=== PATIENT | male | born 1980 | race Two or more races ===

== ENCOUNTER 2025-06-01 09:55 | Emergency (ER) | payer BC, OTHER ==
[~2025-06-01] VITALS: Ht 170.2 cm; Wt 89.5 kg
[2025-06-01] MEDS: SODIUM CHLORIDE 0.9% 1,000 ML IV ONE (10:45)
[2025-06-01 11:08] LABS: Hematocrit 46.0 % (41.0-53.0); Hemoglobin 15.7 g/dL (13.5-17.5); Mean Corpuscular Hemoglobin 28.9 pg (28.0-32.0); Mean Corpuscular Volume 84.6 fL (80.0-100.0); Nucleated Red Blood Cells % 0.1 %
[2025-06-01] MEDS: KETOROLAC TROMETH 30 MG/ML 1ML VIAL IV ONE (11:14)
--- NOTE | 2025-06-01 11:14 | ED.PDOC ---
GI ASSESSMENT HPI Comments 45y M who presents to the ED for chief complaint of abdominal pain. Pt states he has been having abdominal pain for the past 3 days. Pt states yesterday, he started to have nausea and vomiting with associated aching abdominal pain. Pt states his pain got worse since and he feels like his abdominal feels full and "feels inflamed." Pt was sent from urgent care at for evaluation for intractable abdominal pain. Pt states he was given zofran in urgent care with minimal change in symptoms. Pt denies any other symptoms at this time. Chief Complaint: Abdominal Pain Time Seen by MD: 11:12 Reviewed Notes: Medications, Allergies Allergies: Coded Allergies: NO KNOWN ALLERGIES (Unverified , 06/01/25) Information Source: Patient Mode of Arrival: Ambulatory Brought in by: self Timing: Days Duration: Since onset Past Medical History PAST MEDICAL HISTORY: DM, High Lipids Surgical History: Denies all surgeries Family History Family History: Reviewed,noncontributory to illness Social History Smoker: Non-Smoker Alcohol: Denies ETOH Use Drugs: Denies Drug Use Lives In: Home Constitutional: denies: chills, diaphoresis, fatigue, fever, malaise, sweats, weakness, others EENTM: denies: blurred vision, double vision, ear bleeding, ear discharge, ear drainage, ear pain, ear ringing, eye pain, eye redness, hearing loss, mouth pain, mouth swelling, nasal discharge, nose bleeding, nose congestion, nose pain, photophobia, tearing, throat pain, throat swelling, voice changes, others Respiratory: denies: cough, hemoptysis, orthopnea, SOB at rest, shortness of breath, SOB with excertion, stridor, wheezing, others Cardiovascular: denies: chest pain, dizzy spells, diaphoresis, Dyspnea on exertion, edema, irregular heart beat, left arm pain, lightheadedness, pal pitations, PND, syncope, others Gastrointestinal: reports: abdominal pain, nausea, vomiting; denies: abdomen distended, blood streaked bowels, constipated, diarrhea, dysphagia, difficulty swallowing, hematemesis, melena, poor appetite, poor fluid intake, rectal bleeding, rectal pain, others Genitourinary: denies: burning, dysuria, flank pain, frequency, hematuria, incontinence, penile discharge, penile sore, pain, testicle pain, testicle swelling, urgency, others Neurological: denies: dizziness, fainting, headache, left sided numbness, left sided weakness, numbness, paresthesia, pre-existing deficit, right sided numbness, right sided weakness, seizure, speech problems, tingling, tremors, weakness, others Musculoskeletal: denies: back pain, gout, joint pain, joint swelling, muscle pain, muscle stiffness, neck pain, others Integumetry: denies: bruises, change in color, change in hair/nails, dryness, laceration, lesions, lumps, rash, wounds, others Allergic/Immunocompromised: denies: Difficulty Healing, Frequent Infections, Hives, Itching, others Hematologic/Lymphatic: denies: anemia, blood clots, easy bleeding, easy bruising, swollen glands, others Endocrine: denies: excessive hunger, excessive sweating, excessive thirst, excessive urination, flushing, intolerance to cold, intolerance to heat, unexplained weight gain, unexplained weight loss, others Psychiatric: denies: anxiety, bipolar disorder, depression, hopeless, panic disorder, schizophrenia, sleepless, suicidal, others All Other Systems: Reviewed and Negative Physical Exam General Appearance: No Apparent Distress, Normal HEENT: Normal ENT Inspection, Pharynx Normal, TMs Normal Neck: Full Range of Motion, Non-Tender, Normal, Normal Inspection Respiratory: Chest Non-Tender, Lungs Clear, No Accessory Muscle Use, No Respiratory Distress, Normal Breath Sounds Cardiovascular: No Edema, No JVD, No Murmur, No Gallop, Normal Peripheral Pulses, Regular Rate/Rhythm Breast Exam: Deferred Gastrointestinal: No Organomegaly, Non Tender, No Pulsatile Mass, Normal Bowel Sounds, Soft Genitalia: Deferred Pelvic: Deferred Rectal: Deferred Extremities: No calf tenderness, Normal capillary refill, Normal inspection, Normal range of motion, Non-tender, No pedal edema Musculoskeletal : Apperance: Normal Neurologic: Alert, bag loader II-XII nml as Tested, No Motor Deficits, Normal Affect, Normal Mood, No Sensory Deficits Cerebellar Function: Normal Reflexes: Normal Skin: Dry, Normal Color, Warm Lymphatic: No Adenopathy Was a procedure done? Was a procedure done?: No GI differential Dx Differential Diagnosis: Cholangitis, Cholecystitis, Constipation, Diverticular disease, Gastritis/PUD, Gastroenteritis, Inflammatory BD, Pancreatitis, Dehydrat ion, Electrolyte Imbalance, Food Poisoning, Bacterial, Parasitic, Viral, Stress Ulcer X-Ray, Labs, Meds, VS Vital Signs Date Time Temp Pulse Resp B/P (MAP) Pulse Ox O2 Delivery O2 Flow Rate FiO2 06/01/25 14:03 98.0 78 16 153/96 (115) 97 98.0 06/01/25 11:20 74 16 99 Room Air* 0 21 06/01/25 11:10 98.0 74 18 150/99 (116) 99 98.0 06/01/25 09:56 99.4 73 18 143/99 96 99.4 Lab Test 06/01/25 11:00 06/01/25 10:43 Range/Units Urine Color Light-yellow Yellow Urine Clarity Clear Clear Urine pH 6.0 5.0-9.0 Urine Specific [place] 1.018 1.001-1.035 Urine Protein Negative Negative Urine Ketones Trace Negative Urine Blood Negative Negative /uL Urine Nitrite Negative Negative Urine Bilirubin Negative Negative Urine Urobilinogen Normal Negative mg/dL Urine Leukocyte Esterase Negative Negative /uL Urine RBC <1 0 - 3 /hpf Urine Microscopic WBC < 1 0-3 /HPF Urine Squamous Epithelial Cells None seen <5 /hpf Urine Bacteria None seen None Seen /hpf Urine Mucus Few None Seen Urine Glucose Normal Normal mg/dL White Blood Count 8.6 4.4-10.8 10^3/uL Red Blood Count 5.44 4.5-5.90 10^6/uL Hemoglobin 15.7 13.5-17.5 g/dL Hematocrit 46.0 41.0-53.0 % Mean Corpuscular Volume 84.6 80.0-100.0 fL Mean Corpuscular Hemoglobin 28.9 28.0-32.0 pg Mean Corpuscular Hemoglobin Concent 34.1 32.0-36.0 g/dL Red Cell Distribution Width 13.8 11.8-14.3 % Platelet Count 258 140-450 10^3/uL Mean Platelet Volume 8.5 6.9-10.8 fL Neutrophils (%) (Auto) 78.1 37.0-80.0 % Lymphocytes (%) (Auto) 18.0 10.0-50.0 % Monocytes (%) (Auto) 3.4 0.0-12.0 % Eosinophils (%) (Auto) 0.1 0.0-7.0 % Basophils (%) (Auto) 0.4 0.0-2.0 % Neutrophils # (Auto) 6.7 1.6-8.6 10 ^3/uL Lymphocytes # (Auto) 1.5 0.4-5.4 10 ^3/uL Monocytes # (Auto) 0.3 0-1.3 10 ^3/uL Eosinophils # (Auto) 0 0-0.8 10 ^3/uL Basophils # (Auto) 0 0-0.2 10 ^3/uL Nucleated Red Blood Cells 0.1 % Sodium Level 141 136-145 mmol/L Potassium Level 4.2 3.5-5.1 mmol/L Chloride Level 102 98-107 mmol/L Carbon Dioxide Level 28 20-31 mmol/L Anion Gap 11 5-15 Blood Urea Nitrogen 10 9-23 mg/dL Creatinine 1.13 0.700-1.30 mg/dL Glomerular Filtration Rate Calc 82 >90 mL/min BUN/Creatinine Ratio 8.8 L 10.0-20.0 Serum Glucose 120 H 74-106 mg/dL Calcium Level 10.0 8.7-10.4 mg/dL Lipase 44 12-53 U/L Current Medications Medications (Trade) Dose Ordered Sig/Eliot Route Start Time Stop Time Status Last Admin Sodium Chloride 1,000 ml @ 1,000 mls/hr Q1H ONCE IV 06/01/25 10:45 06/01/25 11:44 DC 06/01/25 10:45 Ondansetron HCl (Zofran) 4 mg O ONCE IV 06/01/25 10:45 06/01/25 10:46 DC 06/01/25 11:15 Ketorolac Tromethamine (Toradol Injection) 15 mg ONCE ONCE IV 06/01/25 10:45 06/01/25 10:46 DC 06/01/25 11:14 [place] [id number] Ph: [phone] DIAGNOSTIC IMAGING Diagnostic Imaging Report : [id number] Signed PATIENT: HANS VERDUGOT: [id number] UNIT: [id number] : 1980 LOC: ER ROOM / BED: / AGE / SEX: 45 / M ADM STATUS: REG ER SERVICE 1035 ORDERING PHYSICIAN: TITUS IRBY MD PROCEDURE(s): ABPL - CT AB PEL WO CON-NO ORAL OR IV REASON: periumbilical ttp, r/o appy ORDER NUMBER(s): [id number], ACCESSION NUMBER(s): [id number] CLINICAL HISTORY: Periumbilical ttp, r/o appy. TECHNIQUE: CT of the abdomen and pelvis was performed without intravenous contrast. This exam was performed according to our departmental dose optimiz ation program. Up-to-date CT equipment and radiation dose reduction techniques are utilized as appropriate. CTDIvol: 10.6 mGy; DLP: 669.4 mGy-cm. COMPARISON: None available. FINDINGS: Lack of intravenous contrast limits assessment of the organs and vasculature. Within this limitation, the following assessment is made: Lower Chest: Lung Bases: Minimal dependent subsegmental atelectasis and/or scarring of the lung bases. Abdomen and Pelvis: Liver: Unremarkable. Gallbladder: Unremarkable. Bile Ducts: Unremarkable. Pancreas: Unremarkable. Spleen: Unremarkable. Adrenal glands: Unremarkable. Kidneys/Ureters: Unremarkable. Stomach: Small hiatal hernia. Small and Large Bowel: No evidence of bowel obstruction or abnormal bowel wall thickening. Sasu-vc-rgxjsuch left-sided colonic diverticulosis without evidence of diverticulitis. Incidentally noted duodenal diverticulum measuring up to 1.9 cm. Appendix: Normal. Vasculature: Unremarkable. No evidence of an abdominal aortic aneurysm. Lymph nodes: Unremarkable. Mesentery: No evidence of intraperitoneal free gas or liquid. Pelvic Organs: Qaeab-rm-qwxoclzd bilateral hydroceles with small volume liquid within the right inguinal canal. Bladder: Unremarkable. Abdominal Wall: Small fat-containing umbilical hernia. Small fat-containing bilateral inguinal hernias, left greater than right. Soft tissues: Unremarkable. Bones: Unremarkable. Other: None. IMPRESSION: 1. No acute intra-abdominal or intrapelvic abnormality. Normal appendix. 2. Inva-er-niqronzf left-sided colonic diverticulosis without evidence of diverticulitis. 3. Small hiatal hernia. 4. Additional chronic findings as described. ATED BY: ADOLPH FROD MD DICTATED DATE/TIME: 06/01/25 1126 SIGNED BY: ADOLPH FORD MD SIGNED DATE/TIME: 06/01/25 1126 CC: X-Ray, Labs, Meds, VS Comment Patient presents with abd pain with etiology most likely secondary to gastritis/ GERD or other benign etiology. Discussed management as outpatient with H2 Aleks (for which prescription was sent to the pharmacy) and risk reduction with lifestyle changes such as sleeping at an angle, reduction in trigger (acidic/caffeinated/spicy/alcohol) foods, spreading out meals to 5-6 small meals per day, and minimizing PO intake 2 hours prior to sleep. Reviewed return prec autions with patient including worsening pain, PO intolerance, fever > 100.4. Reviewed return precautions including, but not limited to fever > 100.4, worsening of symptoms, and PO intolerance. Patient is in agreement with the plan and all questions answered. Considered acute biliary process (choledocholithiasis, cholecystitis, cholangitis), pancreatitis, UGIB, PUD, gastric perforation, lower lobe pneumonia, atypical ACS/NE, or vascular catastrophe, but based on above history/physical/evaluation as above consider these to be less likely. Images Reviewed?: Images reviewed and evaluated by me Time of 1ST Reevaluation: 11:40 Reevaluation 1ST: Unchanged Time of 2ND Reevaluation: 14:34 Reevaluation 2ND: Improved Patient Education/Counseling: Diagnosis, Treatment Family Education/Counseling: Diagnosis, Treatment SEPSIS Sepsis Screen Date sepsis recognized/suspect: Jun 01, 2025 Time Sepsis recognized/suspect: 957 Recent Procedure: No On Antibiotic Therapy: No Respiratory Rate >20: No Heart Rate >90: No Temp<36 C (96.8 F) or >38.3 C: No SBP <90 or MAP <65 mmHG: No New Acute Mental Status Change: No Is the patient on CPAP, BIPAP,: No Physician Orders Ct Ab Pel Wo Con-No Oral Or Iv (06/01/25 10:35) Vital Signs Date Time Temp Pulse Resp B/P (MAP) Pulse Ox O2 Delivery O2 Flow Rate FiO2 06/01/25 14:03 98.0 78 16 153/96 (115) 97 98.0 06/01/25 11:20 74 16 99 Room Air* 0 21 06/01/25 11:10 98.0 74 18 150/99 (116) 99 98.0 06/01/25 09:56 99.4 73 18 143/99 96 99.4 Laboratory Tests Test 06/01/25 10:43 White Blood Count 8.6 10^3/uL (4.4-10.8) Medications Medications Dose Ordered Sig/Eliot Route Start Time Stop Time Status Last Admin Dose Admin Ketorolac Tromethamine 15 mg ONCE ONCE IV 06/01/25 10:45 06/01/25 10:46 DC 06/01/25 11:14 Ondansetron HCl 4 mg O ONCE IV 06/01/25 10:45 06/01/25 10:46 DC 06/01/25 11:15 Sodium Chloride 1,000 ml @ 1,000 mls/hr Q1H ONCE IV 06/01/25 10:45 06/01/25 11:44 DC 06/01/25 10:45 Departure 1 Departure Time of Disposition: 14:35 Impression: Primary Impression: GERD (gastroesophageal reflux disease) Disposition: 01 HOME / SELF CARE / HOMELESS Condition: Stable e-Prescriptions Famotidine (PEPCID TABLET) 20 Mg Tb 1 TAB PO BID for 14 Days, #28 TAB 0 Refills Prov: TITUS IRBY MD 06/01/25 Critical Care Note Critical Care Time?: No Stability Stability form required: No Heart Score Heart Score: Heart Score Response (Comments) Value History N/A 0 EKG N/A 0 Age N/A 0 Risk Factors N/A 0 Troponin N/A 0 Total 0 I personally scribed for TITUS IRBY MD ([email or web address]) on 06/01/25 at 11:14. Electronically submitted by Faby Pearson ([email or web address]). I personally scribed for TITUS IRBY MD ([email or web address]) on 06/01/25 at 13:20. Electronically submitted by Faby Pearson ([email or web address]). TITUS IRBY MD Jun 01, 2025 11:14
[2025-06-01] MEDS: ONDANSETRON HCL 4 MG/2 ML VIAL IV ONE (11:15)
[2025-06-01 11:20] VITALS: PULSE 74; RESP 16; O2SAT 99
[2025-06-01 11:20] LABS: Chloride 102 mmol/L (98-107); Potassium 4.2 mmol/L (3.5-5.1); Sodium 141 mmol/L (136-145)
[2025-06-01 11:21] LABS: Anion Gap 11 (5-15); Carbon Dioxide 28 mmol/L (20-31)
[2025-06-01 11:22] LABS: Calcium 10.0 mg/dL (8.7-10.4)
[2025-06-01 11:27] LABS: BUN/Creatinine Ratio 8.8 (10.0-20.0); Blood Urea Nitrogen 10 mg/dL (9-23)
[2025-06-01 11:28] LABS: Glucose 120 mg/dL (74-106)
--- NOTE | 2025-06-01 11:28 | DVH ---
CLINICAL HISTORY: Periumbilical ttp, r/o appy. TECHNIQUE: CT of the abdomen and pelvis was performed without intravenous contrast. This exam was performed according to our departmental dose optimization program. Up-to-date CT equipment and radiation dose reduction techniques are utilized as appropriate. CTDIvol: 10.6 mGy; DLP: 669.4 mGy-cm. COMPARISON: None available. FINDINGS: Lack of intravenous contrast limits assessment of the organs and vasculature. Within this limitation, the following assessment is made: Lower Chest: Lung Bases: Minimal dependent subsegmental atelectasis and/or scarring of the lung bases. Abdomen and Pelvis: Liver: Unremarkable. Gallbladder: Unremarkable. Bile Ducts: Unremarkable. Pancreas: Unremarkable. Spleen: Unremarkable. Adrenal glands: Unremarkable. Kidneys/Ureters: Unremarkable. Stomach: Small hiatal hernia. Small and Large Bowel: No evidence of bowel obstruction or abnormal bowel wall thickening. Obfb-oe-zrkmwbez left-sided colonic diverticulosis without evidence of diverticulitis. Incidentally noted duodenal diverticulum measuring up to 1.9 cm. Appendix: Normal. Vasculature: Unremarkable. No evidence of an abdominal aortic aneurysm. Lymph nodes: Unremarkable. Mesentery: No evidence of intraperitoneal free gas or liquid. Pelvic Organs: Wtxpo-re-ebwcpunp bilateral hydroceles with small volume liquid within the right inguinal canal. Bladder: Unremarkable. Abdominal Wall: Small fat-containing umbilical hernia. Small fat-containing bilateral inguinal hernias, left greater than right. Soft tissues: Unremarkable. Bones: Unremarkable. Other: None. IMPRESSION: 1. No acute intra-abdominal or intrapelvic abnormality. Normal appendix. 2. Fakl-dz-rswkjxui left-sided colonic diverticulosis without evidence of diverticulitis. 3. Small hiatal hernia. 4. Additional chronic findings as described.
[2025-06-01 12:53] LABS: Urine Protein, UAD Negative (Negative)
[2025-06-01] MEDS ORDERED: FAMO20TA10 PO (14:35)
[2025-06-01 14:59] VITALS: BP 128/78; PULSE 70; RESP 18; TEMP 98; O2SAT 98
== END 2025-06-01 14:59 | disposition home or self-care (01) ==
LOC: ER 09:55
DX: K21.9 Gastro-esophageal reflux disease without esophagitis (principal); E11.9 Type 2 diabetes mellitus without complications
CPT/HCPCS: 36415; 74176; 80048; 81001; 83690; 85025; 96361; 96374; 96375; 99285; J1885; J2405; J7030